=== PATIENT | male | born 1995 | race Caucasian/White ===

== ENCOUNTER 2018-03-09 21:00 | Emergency (ER) | payer OTHER ==
[~2018-03-09] VITALS: Ht 383.5 cm; Wt 74.1 kg
[2018-03-09 21:36] VITALS: BP 138/82
== END 2018-03-09 22:06 | disposition home or self-care (01) ==
LOC: EMS 21:02
DX: S61.211A Laceration without foreign body of left index finger without damage to nail, initial encounter (principal); F17.210 Nicotine dependence, cigarettes, uncomplicated; W26.0XXA Contact with knife, initial encounter; Y93.89 Activity, other specified; Y92.89 Other specified places as the place of occurrence of the external cause; Y99.8 Other external cause status
CPT/HCPCS: 99406